=== PATIENT | female | born 1995 | race Caucasian/White ===

== ENCOUNTER 2023-01-19 15:04 | Inpatient (IN) | payer OTHER ==
[2023-01-19 16:01] VITALS: BMI 26.5
[2023-01-19] MEDS ORDERED: hydrALAZINE 20 MG/ML VIAL SLOW IVP PRN ×3 (16:33→19:01)
[2023-01-19 17:12] LABS: #Monocytes 0.5 10x3/uL (0.0-1.1); #Neutrophils 6.3 10x3/uL (1.5-8.4); %Basophils 0.2 % (0.0-2.0); %Eosinophils 0.2 % (0.0-6.0); %Lymphocytes 17.3 % (18.0-47.0); %Monocytes 6.1 % (0.0-10.0); %Neutrophils 75.8 % (40.0-75.0); Hematocrit 40.4 % (34.9-44.5); Hemoglobin 13.9 g/dL (12.0-15.5); Mean Corpuscular HGB CONC 34.4 g/dL (32.0-36.0); Mean Corpuscular Hemoglobin 32.3 pg (27.0-33.0); Mean Platelet Volume 11.3 fl (7.4-10.4); Platelet Count 201 10x3/uL (150-450); RBC Distribution Width 13.5 % (11.5-14.5); White Blood Cell (WBC) Count 8.4 10x3/uL (3.5-10.5)
[2023-01-19 17:18] LABS: ALT (SGPT) 12 U/L (8-55); AST (SGOT) 17 U/L (5-34); Albumin 3.5 g/dL (3.5-5.0); Alkaline Phosphatase 180 U/L (40-110); Anion Gap 14 mmol/L (10-20); BUN (Urea Nitrogen) 11 mg/dL (7.0-18.7); Bilirubin, Total 0.4 mg/dL (0.2-1.2); Calc. Creatinine Clearance 142 mL/min (70-130); Calcium 9.3 mg/dL (7.8-10.44); Carbon Dioxide 21 mmol/L (22-29); Chloride 104 mmol/L (98-107); Estimated GFR 123; Globulin 2.9 g/dL (2.4-3.5); Glucose 78 mg/dL (70-105); Potassium 4.1 mmol/L (3.5-5.1); Protein, Total 6.4 g/dL (6.0-8.3); Sodium 135 mmol/L (136-145)
[2023-01-19 17:51] LABS: Creatinine, Urine 55.26 mg/dL (47-110); Protein, Urine Random Quant Less than 10 mg/dL (1-14)
[2023-01-19] MEDS ORDERED: Tranexamic Acid 1,000 MG/10 ML VIAL IVP PRN (19:01)
[2023-01-19] MEDS ORDERED: Labetalol HCl 100 MG/20 ML VIAL SLOW IVP PRN ×2 (19:01)
[2023-01-19] MEDS ORDERED: Promethazine HCl 25 MG/ML VIAL IM PRN (19:01)
[2023-01-19] MEDS ORDERED: Lidocaine 1% (PF) 30 ML VIAL SC PRN ×2 (19:01→19:06)
[2023-01-19] MEDS ORDERED: Zolpidem Tartrate 5 MG TAB PO PRN (19:01)
[2023-01-19] MEDS ORDERED: fentaNYL 50 mcg/mL 1 mL Vial SLOW IVP PRN (19:01)
[2023-01-19] MEDS ORDERED: Carboprost 250 MCG/ML AMP IM PRN (19:01)
[2023-01-19] MEDS ORDERED: Misoprostol 200 MCG TAB PR PRN (19:01)
[2023-01-19] MEDS ORDERED: Docusate 100 MG CAP PO PRN (19:01)
[2023-01-19] MEDS ORDERED: Diphenoxylate HCl/Atropine Tablet PO PRN (19:01)
[2023-01-19] MEDS ORDERED: Acetaminophen 500 MG TAB PO PRN (19:01)
[2023-01-19] MEDS ORDERED: Ondansetron PF 4 MG/2 ML Vial IVP PRN (19:01)
[2023-01-19] MEDS ORDERED: Oxytocin 30 units/NS 500 ML 500 ML IV SCH ×2 (20:15)
[2023-01-19] MEDS ORDERED: Penicillin G Potassium 5 MILL.UNITS in Sodium Chloride 0.9% 100 ML IVPB SCH (20:15)
[2023-01-19] MEDS: Misoprostol 100 MCG TAB VAG SCH (20:19)
[2023-01-19 22:02] LABS: HBSAg Index 0.15 S/CO (0-0.99); Hep B Surf Ag - L&D Non-Reactive S/CO (NonReactive)
[2023-01-19 22:03] LABS: Syphilis Antibody Nonreactive (Nonreactive); Syphilis Antibody Index 0.28 S/CO (<1.00 Non-Reactive)
[2023-01-20] MEDS: Penicillin G 2.5 MILL.units 2.5 MILL.UNITS in Premix 1 BAG IVPB SCH ×4 (00:37→17:32)
[2023-01-20] MEDS: Misoprostol 100 MCG TAB VAG SCH ×3 (03:09→17:32)
[2023-01-20] MEDS ORDERED: fentaNYL/Ropivacaine Epidural 100 ML ONE (08:50)
[2023-01-20] MEDS: Lactated Ringer's 1,000 ML IV SCH ×2 (09:20→17:32)
[2023-01-20] MEDS ORDERED: Naloxone HCl 0.4 mg/ml Vial IVP PRN ×2 (09:53)
[2023-01-20] MEDS ORDERED: Lactated Ringer's 500 ML IV PRN (09:53)
[2023-01-20] MEDS ORDERED: Promethazine HCl 25 MG/ML VIAL IM PRN (09:53)
[2023-01-20] MEDS ORDERED: Acetaminophen 325 MG TAB PO PRN (09:53)
[2023-01-20] MEDS ORDERED: Moisturizing Cream (Eucerin) 113 GM JAR TOP PRN (09:53)
[2023-01-20] MEDS ORDERED: ePHEDrine Sulfate 50 MG/10 ML VIAL SLOW IVP PRN (09:53)
[2023-01-20] MEDS ORDERED: Ondansetron PF 4 MG/2 ML Vial IVP PRN (09:53)
[2023-01-20] MEDS ORDERED: diphenhydrAMINE 50 MG/ML VIAL IVP PRN (09:53)
[2023-01-20] MEDS ORDERED: fentaNYL 2 mcg/Ropivacaine 0.2% Epidural 100 ML CADD EPIDURAL SCH (10:00)
[2023-01-20] MEDS ORDERED: Communication Order-Pharmacy FS SCH (10:00)
[2023-01-20] MEDS ORDERED: hydrALAZINE 20 MG/ML VIAL SLOW IVP PRN (17:26)
[2023-01-20] MEDS ORDERED: Milk Of Magnesia 30 ML UDCUP PO PRN (17:26)
[2023-01-20] MEDS ORDERED: Boostrix 0.5 ML (Tdap) VIAL (>/=7 yrs of age) IM ONE (17:26)
[2023-01-20] MEDS ORDERED: diphenhydrAMINE 25 MG CAP PO PRN (17:26)
[2023-01-20] MEDS ORDERED: Lanolin Ointment 7 GM TUBE TOP PRN (17:26)
[2023-01-20] MEDS ORDERED: traMADol HCl 50 MG TAB PO PRN (17:26)
[2023-01-20] MEDS ORDERED: Benzocaine-Menthol 82.5 ML CAN TOP PRN (17:26)
[2023-01-20] MEDS ORDERED: Bisacodyl 10 MG SUPP PR PRN (17:26)
[2023-01-20] MEDS ORDERED: Ferrous Sulfate 325 MG TAB PO SCH (18:00)
[2023-01-20] MEDS: Ibuprofen 800 MG TAB PO SCH (20:46)
[2023-01-20] MEDS: Docusate 100 MG CAP PO SCH (20:46)
[2023-01-21] MEDS: Ibuprofen 800 MG TAB PO SCH ×2 (05:06→13:58)
[2023-01-21] MEDS ORDERED: Ferrous Sulfate 325 MG TAB PO SCH (08:00)
[2023-01-21] MEDS: Docusate 100 MG CAP PO SCH (08:55)
[2023-01-21] MEDS ORDERED: Prenatal Vitamin 1 TAB PO SCH (09:00)
[2023-01-21 11:24] VITALS: BP 134/86; TEMP 97.6
== END 2023-01-21 16:50 | disposition home or self-care (01) | DRG 807 ==
LOC: CSHLD/OP 15:04 → CSHLD 18:34 → CSHPED 01-20 18:00
PROVIDERS: ADMIT Obstetrics & Gynecology; ATTEND Obstetrics & Gynecology
PROC: 10E0XZZ Delivery of Products of Conception, External Approach (ICD-10-PCS; principal; 2023-01-20)
PROC: 0UQMXZZ Repair Vulva, External Approach (ICD-10-PCS; 2023-01-20)
DX: O13.4 Gestational [pregnancy-induced] hypertension without significant proteinuria, complicating childbirth (principal); Z37.0 Single live birth; Z3A.39 39 weeks gestation of pregnancy; O71.82 Other specified trauma to perineum and vulva; O99.824 Streptococcus B carrier state complicating childbirth
CPT/HCPCS: 36415; 51702; 80053; 82570; 84156; 85025; 86780; 86850; 86900; 86901; 87340; 99285; J2540; J2590; J3010; J3490; J7120